=== PATIENT | female | born 1975 | race Caucasian/White ===

== ENCOUNTER 2024-10-26 06:06 | Day surgery (SDC) | payer OTHER, SELFPAY ==
[2024-10-19 08:49] LABS: Hematocrit 39.8 % (37.0-47.0); Hemoglobin 13.5 g/dL (12.0-16.0); Mean Corp Hgb Conc. 33.9 g/dL (33.0-37.0); Mean Corpuscular Volume 91.3 fL (81.0-99.0); Mean Platelet Volume 10.4 fL (7.4-10.4); Platelet Count 290 10^3/uL (130-400); Red Blood Cell Count 4.36 10^6/uL (4.20-5.40); Red Cell Dist. Width 12.4 % (11.5-14.5); White Blood Cell Count 4.8 10^3/uL (4.8-10.8)
[2024-10-19 09:14] LABS: Blood Urea Nitrogen 14 mg/dl (7-17); Calcium 9.5 mg/dl (8.4-10.2); Carbon Dioxide 27 mmol/L (22-30); Chloride 103 mmol/L (98-107); Glucose 108 mg/dl (70-99); Potassium 4.5 mmol/L (3.5-5.1); Sodium 137 mmol/L (135-145); eGFR > 60.00
[2024-10-19 14:08] VITALS: BMI 18.0
--- NOTE | 2024-10-20 16:16 | PTCARENOTE ---
Abnormal ECG 10/19/[address] Tanner, no further interventions requested.
[2024-10-26] VITALS (13 sets, daily range): BP systolic 101–128; BP diastolic 59–73; BMI 18.0
[2024-10-26] MEDS: NORMOSOL-R/PLASMALYTE-A 1000 IV (06:37)
[2024-10-26] MEDS: HEPARIN 5000 UNITS SC (06:38)
[2024-10-26] MEDS: ZOFRAN 4 MG IV (11:58)
[2024-10-26] MEDS: FLAGYL 500 MG 100 IV (12:11)
[2024-10-26] MEDS: COMPAZINE 5 MG IV (12:18)
[2024-10-26] MEDS: DILAUDID 0.25 MG IV (12:43)
[2024-10-26] MEDS: Pyridium 200 MG PO (13:15)
--- NOTE | 2024-10-26 14:20 | PTCARENOTE ---
Report given to Jessy BAEZ.
[2024-10-26] MEDS: ROXICODONE 5 MG PO (15:10)
[2024-10-26] MEDS: MOTRIN 600 MG PO (15:10)
== END 2024-10-26 16:53 | disposition home or self-care (01) ==
LOC: SDS 06:06
PROVIDERS: ATTENDING PHYSICIAN Obstetrics & Gynecology; FAMILY PHYSICIAN Family Medicine
DX: N81.2 Incomplete uterovaginal prolapse (principal); R39.15 Urgency of urination; N88.4 Hypertrophic elongation of cervix uteri; D25.9 Leiomyoma of uterus, unspecified; N88.8 Other specified noninflammatory disorders of cervix uteri
CPT/HCPCS: 58573; 57283; 57250; 88305; 36415; 80048; 85027; 86850; 86900; 86901; 93005; C1713